=== PATIENT | female | born 1990 | race Two or more races ===

== ENCOUNTER 2025-05-17 12:55 | Emergency (ER) | payer MEDICAID, OTHER ==
[~2025-05-17] VITALS: Ht 157.5 cm; Wt 57.4 kg
--- NOTE | 2025-05-17 13:29 | ED.PDOC ---
OIL DRILLER HPI Comments 34 year old female presents to the ED with a chief compliant of pelvic pain onset 2 days. Patient states she has been experiencing pelvic pain as well as vaginal bleeding for the past 2 days. She took 5 at home test, were all positive. She currently has an IUD in place, [facility]. P:5 A:3, LMP was about 2 months ago. Denies nausea, vomiting, diarrhea, headache, dizziness, fever, chills, dysuria, vaginal discharge. No other symptoms or modifying factors present at this time. Chief Complaint: Pelvic Pain Time Seen by MD: 13:15 Reviewed Notes: Medications, Allergies Allergies: Coded Allergies: Penicillins (Verified Allergy, Unknown, 05/17/25) Information Source: Patient Mode of Arrival: Ambulatory Timing: Days Prehospital treatment: None Severity: Moderate Vaginal Discharge: None Vaginal Lesions: None Bleeding Quality: Bright Red Vaginal Mass: None Onset Of Mass/Bleeding: Spontaneous Sexual Activity: Last Consensual [place]: Unknown Control: None History of: Current Symptoms of Possible : Missed Period Associated Signs and Symptoms: Vaginal Bleeding Past Medical History PAST MEDICAL HISTORY: Denies Surgical History: Denies all surgeries 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 Family History Family History: Reviewed,noncontributory to illness, No family hx of Cancer, No family hx of DM, No family hx of Heart arlet, No family hx of HTN, No family hx ofKidney arlet, No family hx of Liver arlet, No family hx of Lung arlet, No family hx of Stroke Social History Smoker: Non-Smoker Alcohol: Denies ETOH Use Drugs: Denies Drug Use Lives In: Home Constitutional: denies: chills, diaphoresis, fatigue, fever, malaise, sweats, weakness, others EENTM: denies: blurred vision, double vision, ear bleeding, ear discharge, ear drainage, ear pain, ear ringing, eye pain, eye redness, hearing loss, mouth pain, mouth swelling, nasal discharge, nose bleeding, nose congestion, nose pain, photophobia, tearing, throat pain, throat swelling, voice changes, others Respiratory: denies: cough, hemoptysis, orthopnea, SOB at rest, shortness of breath, SOB with excertion, stridor, wheezing, others Cardiovascular: denies: chest pain, dizzy spells, diaphoresis, Dyspnea on exertion, edema, irregular heart beat, left arm pain, lightheadedness, palpitations, PND, syncope, others Gastrointestinal: denies: abdomen distended, abdominal pain, blood streaked bowels, constipated, diarrhea, dysphagia, difficulty swallowing, hematemesis, melena, nausea, poor appetite, poor fluid intake, rectal bleeding, rectal pain, vomiting, others Genitourinary: reports: abnormal vagina bleeding, pain, ; denies: burning, dyspareunia, dysuria, flank pain, frequency, hematuria, incontinence, vagina discharge, urgency, others Neurological: denies: dizziness, fainting, headache, left sided numbness, left sided weakness, numbness, paresthesia, pre-existing deficit, right sided numbness, right sided weakness, seizure, speech problems, tingling, tremors, weakness, others Musculoskeletal: denies: back pain, gout, joint pain, joint swelling, muscle pain, muscle stiffness, neck pain, others Integumetry: denies: bruises, change in color, change in hair/nails, dryness, laceration, lesions, lumps, rash, wounds, others Allergic/Immunocompromised: denies: Difficulty Healing, Frequent Infections, Hives, Itching, others Hematologic/Lymphatic: denies: anemia, blood clots, easy bleeding, easy bru ising, swollen glands, others Endocrine: denies: excessive hunger, excessive sweating, excessive thirst, e xcessive urination, flushing, intolerance to cold, intolerance to heat, unexplained weight gain, unexplained weight loss, others Psychiatric: denies: anxiety, bipolar disorder, depression, hopeless, panic disorder, schizophrenia, sleepless, suicidal, others All Other Systems: Reviewed and Negative Physical Exam General Appearance: Moderate Distress, Normal HEENT: Normal ENT Inspection, Pharynx Normal, TMs Normal Neck: Full Range of Motion, Non-Tender, Normal, Normal Inspection Respiratory: Chest Non-Tender, Lungs Clear, No Accessory Muscle Use, No Respiratory Distress, Normal Breath Sounds Cardiovascular: No Edema, No JVD, No Murmur, No Gallop, Normal Peripheral Pulses, Regular Rate/Rhythm Breast Exam: Deferred Gastrointestinal: No Organomegaly, Non Tender, No Pulsatile Mass, Normal Bowel Sounds, Soft Genitalia: Deferred Pelvic: Deferred Rectal: Deferred Extremities: No calf tenderness, Normal capillary refill, Normal inspection, Normal range of motion, Non-tender, No pedal edema Musculoskeletal : Apperance: Normal Neurologic: Alert, winemaker II-XII nml as Tested, No Motor Deficits, Normal Affect, Normal Mood, No Sensory Deficits Cerebellar Function: Normal Reflexes: Normal Skin: Dry, Normal Color, Warm Peripheral Pulses: 3+ Radial (R), 3+ Radial (L) Lymphatic: No Adenopathy Was a procedure done? Was a procedure done?: No Differential Diagnosis (PAINTER BOTTOM) Vaginal Bleeding: - Complete, - Incomplete, - Inevitable, - Missed, - Threatened X-Ray, Labs, Meds, VS Vital Signs Date Time Temp Pulse Resp B/P (MAP) Pulse Ox O2 Delivery O2 Flow Rate FiO2 05/17/25 12:57 98.6 94 18 108/65 98 98.6 Lab Test 05/17/25 13:56 Range/Units Beta HCG, Quantitative 659.2 H 1.5-4.2 mIU/mL Patient alert. Vitals stable. Abdomen is soft pain Ambulating. Slight elevation beta hCG. Explained to the patient she will need to follow with her OBGYN. Was told to follow up with her primary care physician. Was told to come back if there is any problem. Time of 1ST Reevaluation: 13:45 Reevaluation 1ST: Unchanged Patient Education/Counseling: Diagnosis, Treatment, Prognosis Family Education/Counseling: No Family Present Departure 1 Departure Time of Disposition: 15:34 Impression: Primary Impression: Early stage of Disposition: 01 HOME / SELF CARE / HOMELESS Condition: Good Discharged With: Self Critical Care Note Critical Care Time?: No Stability Stability form required: No Heart Score Heart Score: Heart Score Response (Comments) Value History N/A 0 EKG N/A 0 Age N/A 0 Risk Factors N/A 0 Troponin N/A 0 Total 0 I personally scribed for MARIANA DANIELS MD ([email or web address]) on 05/17/25 at 13:28. Electronically submitted by Nidia Martinez ([email or web address]). MARIANA DANIELS MD May 17, 2025 13:28
--- NOTE | 2025-05-17 15:54 | DVH ---
CLINICAL HISTORY: cramping, positive quantitative beta hCG. History of IUD. COMPARISON:US OB TRANS VAGINAL US on DOS: 05/17/25 TECHNIQUE: Transvaginal and transabdominal grayscale sonographic imaging of the uterus and ovaries wa s performed, assisted by color Doppler technique. Duplex Doppler ultrasound of both ovaries was also performed. FINDINGS: The uterus measures 10.1 x 6.7 x 5.1 cm. There is heterogeneous echogenicity. Endometrial t hickness measures 1.4 cm, within normal limits 4 premenopausal. Tiny anechoic structure in the endome trial canal on the transvaginal images, too small to characterize. No definite gestational sac. No I UD visualized. Right ovary measures 3.7 x 3.0 x 2.8 cm. Arterial and venous blood flow demonstrated. Complex, hetero geneous structure in the right ovary measures up to 2 cm in greatest dimension. Left ovary is not visualized. IMPRESSION: 1. Tiny anechoic structure in the endometrial canal seen on transvaginal images only, possible trace fluid. Too small to characterize. No definite gestational sac identified. Correlate with clinical fin dings, serial beta HCG levels, and follow-up ultrasound recommended. 2. No IUD visualized in the endometrial canal. 3. Complex right ovarian mass measuring up to 2 cm. Differential considerations would include collaps ing corpus luteal cyst or collapsing hemorrhagic cyst. Mature cystic teratoma could also be consider ed. Attention on follow-up ultrasound recommended. 4. Left ovary not visualized.
[2025-05-17 18:46] LABS: Urine Amorphous Crystal MOD /hpf (None Seen); Urine Protein, UAD TRACE (Negative)
[2025-05-17 22:39] VITALS: BP 98/58; PULSE 68; RESP 20; TEMP 98.1; O2SAT 99
== END 2025-05-17 22:31 | disposition home or self-care (01) ==
LOC: ER 12:55
DX: O26.899 Other specified pregnancy related conditions, unspecified trimester (principal); R10.2 Pelvic and perineal pain; Z3A.00 Weeks of gestation of pregnancy not specified; Z88.0 Allergy status to penicillin
CPT/HCPCS: 36415; 76801; 76817; 81001; 84702

== ENCOUNTER 2025-07-06 09:54 | Emergency (ER) | payer MEDICAID ==
[~2025-07-06] VITALS: Ht 157.5 cm; Wt 61.5 kg
--- NOTE | 2025-07-06 10:22 | ED.PDOC ---
History of Present Illness HPI Comments 34-year-old female BIBA with the chief complaint of shortness of breath/chest pain. EMS report that they picked the patient up from work due from having a sudden onset of dizziness when she sat up, prompting her to sit down which caused her to have shortness a breath and sharp substernal chest pain. Patient is 11 weeks and is . Patient notes on having numbness and tingling to her fingertips/lips. Patient has a blood pressure of 115/78 at this time. Denies any other symptoms at this time. Denies chills, fever, N/V/D. No other associated symptoms, modifiers, recent injuries or sick contacts present at this time. 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 Family History Family History: Reviewed,noncontributory to illness, Unknown Social History Smoker: Non-Smoker Alcohol: Denies ETOH Use Drugs: Denies Drug Use Lives In: Home Constitutional: denies: chills, diaphoresis, fatigue, fever, malaise, sweats, weakness, others EENTM: denies: blurred vision, double vision, ear bleeding, ear discharge, ear drainage, ear pain, ear ringing, eye pain, eye redness, hearing loss, mouth pain, mouth swelling, nasal discharge, nose bleeding, nose congestion, nose pain, photophobia, tearing, throat pain, throat swelling, voice changes, others Respiratory: reports: shortness of breath; denies: cough, hemoptysis, orthopnea, SOB at rest, SOB with excertion, stridor, wheezing, others Cardiovascular: reports: chest pain; denies: dizzy spells, diaphoresis, Dyspnea on exertion, edema, irregular heart beat, left arm pain, lightheadedness, palp itations, PND, syncope, others Gastrointestinal: denies: abdomen distended, abdominal pain, blood streaked bowels, constipated, diarrhea, dysphagia, difficulty swallowing, hematemesis, melena, nausea, poor appetite, poor fluid intake, rectal bleeding, rectal pain, vomiting, others Genitourinary: reports: (11 weeks); denies: abnormal vagina bleeding, burning, dyspareunia, dysuria, flank pain, frequency, hematuria, incontinence, pain, vagina discharge, urgency, others Neurological: reports: dizziness; denies: fainting, headache, left sided numbness, left sided weakness, numbness, paresthesia, pre-existing deficit, right sided numbness, right sided weakness, seizure, speech problems, tingling, tremors, weakness, others Musculoskeletal: denies: back pain, gout, joint pain, joint swelling, muscle pain, muscle stiffness, neck pain, others Integumetry: denies: bruises, change in color, change in hair/nails, dryness, laceration, lesions, lumps, rash, wounds, others Allergic/Immunocompromised: denies: Difficulty Healing, Frequent Infections, Hives, Itching, others Hematologic/Lymphatic: denies: anemia, blood clots, easy bleeding, easy bruising, swollen glands, others Endocrine: denies: excessive hunger, excessive sweating, excessive thirst, excessive urination, flushing, intolerance to cold, intolerance to heat, unexplained weight gain, unexplained weight loss, others Psychiatric: denies: anxiety, bipolar disorder, depression, hopeless, panic disorder, schizophrenia, sleepless, suicidal, others All Other Systems: Reviewed and Negative Physical Exam General Appearance: Moderate Distress, Normal HEENT: Normal ENT Inspection, Pharynx Normal, TMs Normal Neck: Full Range of Motion, Non-Tender, Normal, Normal Inspection Respiratory: Chest Non-Tender, Lungs Clear, No Accessory Muscle Use, No Respiratory Distress, Normal Breath Sounds Cardiovascular: No Edema, No JVD, No Murmur, No Gallop, Normal Peripheral Pulses, Regular Rate/Rhythm Breast Exam: Deferred Gastrointestinal: No Organomegaly, Non Tender, No Pulsatile Mass, Normal Bowel Sounds, Soft Genitalia: Deferred Pelvic: Deferred Rectal: Deferred Extremities: No calf tenderness, Normal capillary refill, Normal inspection, Normal range of motion, Non-tender, No pedal edema Musculoskeletal : Apperance: Normal Neurologic: Alert, toxicologist II-XII nml as Tested, No Motor Deficits, Normal Affect, Normal Mood, No Sensory Deficits Cerebellar Function: Normal Reflexes: Normal Skin: Dry, Normal Color, Warm Peripheral Pulses: 3+ Radial (R), 3+ Radial (L) Lymphatic: No Adenopathy Was a procedure done? Was a procedure done?: No Differential Dx Considerations may include: Anemia Electrolyte imbalance X-Ray, Labs, Meds, VS Vital Signs Date Time Temp Pulse Resp B/P (MAP) Pulse Ox O2 Delivery O2 Flow Rate FiO2 07/06/25 16:00 82 28 104/60 (75) 97 07/06/25 14:00 78 26 98/68 (78) 98 07/06/25 12:21 71 07/06/25 11:30 72 25 98 Room Air* 0 21 07/06/25 11:30 98.0 72 25 104/68 (80) 98 98.0 07/06/25 10:20 97.8 83 20 115/78 100 97.8 Lab Test 07/06/25 14:29 07/06/25 10:05 Range/Units Urine Color Light-yellow Yellow Urine Clarity Clear Clear Urine pH 6.0 5.0-9.0 Urine Specific [place] 1.021 1.001-1.035 Urine Protein Negative Negative Urine Ketones 2+ H Negative Urine Blood Negative Negative /uL Urine Nitrite 2+ H Negative Urine Bilirubin Negative Negative Urine Urobilinogen Normal Negative mg/dL Urine Leukocyte Esterase Negative Negative /uL Urine RBC 1 0 - 4 /hpf Urine Microscopic WBC 1 0-5 /HPF Urine Squamous Epithelial Cells Few <5 /hpf Urine Bacteria Few H None Seen /hpf Urine Mucus Few None Seen Urine Yeast (Budding) Occasional None Seen /hpf Urine Glucose Normal Normal mg/dL Beta HCG, Quantitative 76415.5 H 1.5-4.2 mIU/mL Current Medications Medications (Trade) Dose Ordered Sig/Bea Route Start Time Stop Time Status Last Admin Sodium Chloride 1,000 ml @ 1,000 mls/hr Q1H ONCE IV 07/06/25 10:15 07/06/25 11:14 DC 07/06/25 11:00 Patient alert. Vitals stable. States that she is . Answering questions. Establish intravenous access. Was given fluids. Vasovagal. Autonomic disorder. Explained to the patient. Was told to follow up with her OBGYN. Was told to follow up with her primary care physician. Was told to come back if there is any problem. Time of 1ST Reevaluation: 10:50 Reevaluation 1ST: Improved Patient Education/Counseling: Diagnosis, Treatment, Prognosis Family Education/Counseling: No Family Present SEPSIS Sepsis Screen Physician Orders Ob Ultrasound Comp Less 14wks (07/06/25 09:55) Electrocardigram (07/06/25 11:58) Vital Signs Date Time Temp Pulse Resp B/P (MAP) Pulse Ox O2 Delivery O2 Flow Rate FiO2 07/06/25 16:00 82 28 104/60 (75) 97 07/06/25 14:00 78 26 98/68 (78) 98 07/06/25 12:21 71 07/06/25 11:30 72 25 98 Room Air* 0 21 07/06/25 11:30 98.0 72 25 104/68 (80) 98 98.0 07/06/25 10:20 97.8 83 20 115/78 100 97.8 Medications Medications Dose Ordered Sig/Bea Route Start Time Stop Time Status Last Admin Dose Admin Sodium Chloride 1,000 ml @ 1,000 mls/hr Q1H ONCE IV 07/06/25 10:15 07/06/25 11:14 DC 07/06/25 11:00 Departure 1 Departure Time of Disposition: 11:15 Impression: Primary Impression: Normal Qualified Codes: Z34.90 - Encounter for supervision of normal , unspecified, unspecified trimester Additional Impressions: Dehydration UTI (urinary tract infection) Qualified Codes: N30.00 - Acute cystitis without hematuria Disposition: 01 HOME / SELF CARE / HOMELESS Condition: Good e-Prescriptions Cephalexin Monohydrate (Cephalexin) 500 Mg Cap 1 CAP PO QID for 7 Days, #28 CAP Prov: MARIANA DANIELS MD 07/06/25 Discharged With: Self Critical Care Note Critical Care Time?: No Stability Stability form required: No Heart Score Heart Score: Heart Score Response (Comments) Value History N/A 0 EKG N/A 0 Age N/A 0 Risk Factors N/A 0 Troponin N/A 0 Total 0 I personally scribed for MARIANA DANIELS MD ([email or web address]) on 07/06/25 at 10:22. Electronically submitted by Mike Hussein ([email or web address]). MARIANA DANIELS MD Jul 06, 2025 10:22
[2025-07-06] MEDS: SODIUM CHLORIDE 0.9% 1,000 ML IV ONE (11:00)
[2025-07-06 11:30] VITALS: PULSE 72; RESP 25; TEMP 98; O2SAT 98
--- NOTE | 2025-07-06 12:01 | DVH ---
OB ULTRASOUND <14 WEEKS: HISTORY: bleeding TECHNIQUE: Multiple real-time grayscale sonographic images of the pelvis with duplex Doppler color f low, spectral and M-mode analysis. TRANSDUCERS: Transabdominal FINDINGS: The uterus measures 12.7 x 6.9 x 11.4 cm. The cervix not well visualized. Right ovary measures 2.2 x 1.5 x 3.1 cm with normal Doppler color flow. Complex right ovarian cyst m easuring 1.9 cm is stable compared to prior exam. Left ovary measures 2.9 x 1.0 x 1.9 cm with normal Doppler color flow IUP single live fetus at 11 weeks 6 days average ultrasound age based on mean crown-rump length of 4. 9 cm and gestational sac size of 5.9 cm heart rate detected at 168 beats per minute. Small subchorionic hematoma measuring 1.3 cm. IMPRESSION: IUP single live fetus 11 weeks 6 days AUA corresponding to an MARTA of 01/19/2026. Small subchorionic hematoma measuring 1.3 cm. Complex right ovarian cyst measuring 1.9 cm is stable compared to prior exam.
[2025-07-06 15:42] LABS: Urine Budding Yeast OCCASIONAL /hpf (None Seen); Urine Protein, UAD Negative (Negative)
[2025-07-06 16:00] VITALS: BP 104/60; PULSE 82; RESP 28; O2SAT 97
[2025-07-06] MEDS ORDERED: CEPH500C PO (16:41)
--- NOTE | 2025-07-08 13:59 | ECG ---
[facility] Test Date: 2025-07-06 Test Time: 12:16:14 Pat Name: BRITTANEY DOWLING Department: ED Room: Gender: F Drivers License Examiner: RHODA : [id number] Requested By: MARIANA DANIELS Order Number: [id number] Reading MD: Measurements Intervals [place] Rate: 71 P: 94 WI: 199 QRS: 33 QRSD: 97 T: 38 QT: 408 QTc: 444 Interpretive Statements Sinus rhythm ST elevation, consider inferior injury Please click the below link to view image of tracing.
== END 2025-07-06 17:07 | disposition home or self-care (01) ==
LOC: EDBD 09:54 → ER 09:54
DX: Z34.90 Encounter for supervision of normal pregnancy, unspecified, unspecified trimester (principal); N39.0 Urinary tract infection, site not specified; E86.0 Dehydration; Z79.899 Other long term (current) drug therapy; Z88.0 Allergy status to penicillin; Z3A.11 11 weeks gestation of pregnancy
CPT/HCPCS: 36415; 76801; 81001; 84702; 93005; 96360; 99285; J7030